=== PATIENT | male | born 1960 | race Caucasian/White ===

== ENCOUNTER → 2024-07-14 07:46 | Outpatient (REF) | payer BC, SELFPAY ==
[2024-07-14 09:16] LABS: % Basophils 0.8 % (0-2); % Eosinophils 1.7 % (0-6); % Immature Granulocytes 0.4 % (0-0.5); % Lymphocytes 21.4 % (20.5-51.1); % Monocytes 8.6 % (1.7-9.3); % Neutrophils 67.1 % (42.2-75.2); Absolute Eosinophils 0.1 10^3/uL (0-0.7); Absolute Lymphocytes 1.1 10^3/uL (1.2-3.4); Absolute Monocytes 0.5 10^3/uL (0.1-0.6); Absolute Neutrophils 3.5 10^3/uL (1.4-6.5); Hematocrit 44.8 % (39.0-52.0); Hemoglobin 14.4 g/dL (13.0-18.0); Mean Corp Hgb Conc. 32.1 g/dL (33.0-37.0); Mean Corpuscular Hgb 27.8 pg (27.0-31.0); Mean Corpuscular Volume 86.5 fL (80.0-94.0); Mean Platelet Volume 10.1 fL (7.4-10.4); Nucleated Red Blood Cells % 0 % (-); Platelet Count 225 10^3/uL (130-400); Red Blood Cell Count 5.18 10^6/uL (4.70-6.10); Red Cell Dist. Width 13.2 % (11.5-14.5); White Blood Cell Count 5.2 10^3/uL (4.8-10.8)
[2024-07-14 09:53] LABS: ALT (SGPT) 65 U/L (0-50); AST (SGOT) 45 U/L (17-59); Albumin 4.5 g/dl (3.5-5.0); Alkaline Phosphatase 55 U/L (38-126); Blood Urea Nitrogen 15 mg/dl (9-20); Calcium 9.7 mg/dl (8.4-10.2); Carbon Dioxide 30 mmol/L (22-30); Chloride 103 mmol/L (98-107); Glucose 107 mg/dl (70-99); HDL Cholesterol 39 mg/dl; LDL Cholesterol, Calculated 72 mg/dl; Potassium 4.8 mmol/L (3.5-5.1); Sodium 143 mmol/L (135-145); Total Bilirubin 0.7 mg/dl (0.2-1.3); Total Cholesterol 134 mg/dl (50-199); Total Protein 6.8 g/dl (6.3-8.2); Triglyceride 117 mg/dl (10-149); Very Low Density Lipoprotein 23 mg/dl (0-30); eGFR > 60.00
[2024-07-14 10:17] LABS: PSA, Total - Screen 2.06 ng/ml (0.0-4.0); TSH Reflex To Free T4 2.56 uIU/ml (0.47-4.68)
[2024-07-14 12:58] LABS: Glycohemoglobin (HgbA1c) 5.7 % (4.0-5.6)
== END ==
LOC: REG 07:46
PROVIDERS: ATTENDING PHYSICIAN Internal Medicine
DX: R73.03 Prediabetes (principal); E78.5 Hyperlipidemia, unspecified; I10 Essential (primary) hypertension; E66.9 Obesity, unspecified; L70.8 Other acne; Z12.5 Encounter for screening for malignant neoplasm of prostate
CPT/HCPCS: 36415; 80053; 80061; 83036; 84443; 85025; G0103

== ENCOUNTER 2024-07-18 01:47 | Day surgery (SDC) | payer BC, SELFPAY ==
[2024-07-17 22:45] VITALS: BMI 37.1
[2024-07-17 22:51] VITALS: BP 176/98
[2024-07-17 23:05] LABS: % Basophils 0.1 % (0-2); % Immature Granulocytes 0.3 % (0-0.5); % Lymphocytes 5.2 % (20.5-51.1); % Monocytes 3.3 % (1.7-9.3); % Neutrophils 91.1 % (42.2-75.2); Absolute Immature Granulocytes 0.1 10^3/uL (0-0.05); Absolute Lymphocytes 0.8 10^3/uL (1.2-3.4); Absolute Monocytes 0.5 10^3/uL (0.1-0.6); Absolute Neutrophils 13.4 10^3/uL (1.4-6.5); Hematocrit 40.9 % (39.0-52.0); Mean Corp Hgb Conc. 34.2 g/dL (33.0-37.0); Mean Corpuscular Hgb 28.5 pg (27.0-31.0); Mean Corpuscular Volume 83.1 fL (80.0-94.0); Mean Platelet Volume 9.7 fL (7.4-10.4); Nucleated Red Blood Cells % 0 % (-); Platelet Count 197 10^3/uL (130-400); Red Blood Cell Count 4.92 10^6/uL (4.70-6.10); Red Cell Dist. Width 13.2 % (11.5-14.5); White Blood Cell Count 14.7 10^3/uL (4.8-10.8)
[2024-07-17 23:31] VITALS: BP 155/78
[2024-07-17 23:31] LABS: ALT (SGPT) 39 U/L (0-50); AST (SGOT) 37 U/L (17-59); Albumin 4.8 g/dl (3.5-5.0); Alkaline Phosphatase 54 U/L (38-126); Blood Urea Nitrogen 13 mg/dl (9-20); Calcium 9.8 mg/dl (8.4-10.2); Carbon Dioxide 24 mmol/L (22-30); Chloride 96 mmol/L (98-107); Glucose 190 mg/dl (70-99); Lipase 62 U/L (23-300); Potassium 4.9 mmol/L (3.5-5.1); Sodium 134 mmol/L (135-145); Total Bilirubin 0.5 mg/dl (0.2-1.3); Total Protein 7.2 g/dl (6.3-8.2); eGFR > 60.00
[2024-07-17 23:39] LABS: Troponin I < 0.012 ng/ml
--- NOTE | 2024-07-17 23:46 | ED.GENMED ---
History of Present Illness
<Gordy Arnold PA-C - Last Filed: 07/18/24 01:11>
General
Chief Complaint: Chest Pain
Source: patient
Exam Limitations: none
Time Seen by Provider: 07/17/24 23:31
History of Present Illness
History of Present Illness:
64-year-old male with history hypertension hyperlipidemia presents complaining of the onset of chest pressure at 1 PM this afternoon has been fairly constant. Pain does not radiate to the back or neck. There is no associated nausea but notes a
decreased appetite. Pain is not associated with eating. Pain is not pleuritic. He does not use NSAIDs alcohol or caffeine regularly.
Phy Exam
<Gordy Arnold PA-C - Last Filed: 07/18/24 01:11>
Physical Exam
Physical Exam:
General: Well-appearing male no acute respiratory distress
HEENT: Normocephalic atraumatic
Heart: Regular rate and rhythm no murmurs
Lungs: Clear no wheeze
Abdomen is soft but tender to the epigastric and slightly to the right upper quadrant no guarding or rebound normal bowel sounds no pulsatile mass
Extremities: No cyanosis
Skin: Warm no rash
Scores
<Gordy Arnold PA-C - Last Filed: 07/18/24 01:11>
Heart Score for Chest Pain Patients
STEMI patient?: No
History: Slightly or Non-Suspicious
ECG: Normal
Age: >45 - <65 years
Risk Factors: 1 or 2 Risk Factors
Troponin: </= Normal Limit
Heart Score for Chest Pain Patients: 2
Heart Score Risk: 2.5% MACE over next 6 weeks
Sarahlt;Clyde Bruno DO - Last Filed: 07/18/24 01:16>
Heart Score for Chest Pain Patients
Heart Score for Chest Pain Patients: 2
Heart Score Risk: 2.5% MACE over next 6 weeks
Course
<Gordy Arnold PA-C - Last Filed: 07/18/24 01:11>
Orders/Labs/Results
Orders:
Orders
07/17/24 22:46
Electrocardiogram (*1) Urgent
Reason for Study: Chest Pain
EKG- Treatment ONCE
07/17/24 22:58
Complete Blood Count/With Diff Urgent
Comprehensive Metabolic Panel Urgent
Lipase Urgent
Troponin I Urgent
07/17/24 23:47
CR Chest - 2 Views Urgent
Comment:
Reason For Exam: chest pain
07/17/24 23:49
Ketorolac [Toradol] 15 mg IV NOW STA
07/18/24 00:00
CT Abd/pelvis W Iv Cont Urgent
Reason For Exam: abdominal pain
07/18/24 01:05
Piperacillin/Tazo 3.375 Gram [Zosyn] 3.375 gram in 50 ml IV NOW
Abnormal Lab Results
07/17/24
22:58
WBC 14.7 H 10^3/uL
(4.8-10.8)
Abs Immat Gran (auto) 0.1 H 10^3/uL
(0-0.05)
Absolute Neuts (auto) 13.4 H 10^3/uL
(1.4-6.5)
Absolute Lymphs (auto) 0.8 L 10^3/uL
(1.2-3.4)
Neutrophils % 91.1 H %
(42.2-75.2)
Lymphocytes % 5.2 L %
(20.5-51.1)
Sodium 134 L mmol/L
(135-145)
Chloride 96 L mmol/L
(98-107)
Glucose 190 H mg/dl
(70-99)
07/17/24 22:58
07/17/24 22:58
Vital Signs
Initial and Last Documented VS:
Initial Vital Signs
Temp Pulse Resp BP Pulse Ox
98.2 F 105 18 176/98 95
07/17/24 22:51 07/17/24 22:51 07/17/24 22:51 07/17/24 22:51 07/17/24 22:51
Last Documented Vital Signs
Temp Pulse Resp BP Pulse Ox
98.2 F 79 22 155/78 96
07/17/24 22:51 07/17/24 23:31 07/17/24 23:31 07/17/24 23:31 07/17/24 23:31
<Clyde Bruno, DO - Last Filed: 07/18/24 01:16>
Orders/Labs/Results
Orders:
Orders
07/17/24 22:46
Electrocardiogram (*1) Urgent
Reason for Study: Chest Pain
EKG- Treatment ONCE
07/17/24 22:58
Complete Blood Count/With Diff Urgent
Comprehensive Metabolic Panel Urgent
Lipase Urgent
Troponin I Urgent
07/17/24 23:47
CR Chest - 2 Views Urgent
Comment:
Reason For Exam: chest pain
07/17/24 23:49
Ketorolac [Toradol] 15 mg IV NOW STA
07/18/24 00:00
CT Abd/pelvis W Iv Cont Urgent
Reason For Exam: abdominal pain
07/18/24 01:05
Piperacillin/Tazo 3.375 Gram [Zosyn] 3.375 gram in 50 ml IV NOW
Abnormal Lab Results
07/17/24
22:58
WBC 14.7 H 10^3/uL
(4.8-10.8)
Abs Immat Gran (auto) 0.1 H 10^3/uL
(0-0.05)
Absolute Neuts (auto) 13.4 H 10^3/uL
(1.4-6.5)
Absolute Lymphs (auto) 0.8 L 10^3/uL
(1.2-3.4)
Neutrophils % 91.1 H %
(42.2-75.2)
Lymphocytes % 5.2 L %
(20.5-51.1)
Sodium 134 L mmol/L
(135-145)
Chloride 96 L mmol/L
(98-107)
Glucose 190 H mg/dl
(70-99)
07/17/24 22:58
07/17/24 22:58
Vital Signs
Initial and Last Documented VS:
Initial Vital Signs
Temp Pulse Resp BP Pulse Ox
98.2 F 105 18 176/98 95
07/17/24 22:51 07/17/24 22:51 07/17/24 22:51 07/17/24 22:51 07/17/24 22:51
Last Documented Vital Signs
Temp Pulse Resp BP Pulse Ox
98.2 F 79 22 155/78 96
07/17/24 22:51 07/17/24 23:31 07/17/24 23:31 07/17/24 23:31 07/17/24 23:31
<Gordy Arnold PA-C - Last Filed: 07/18/24 01:11>
MDM/Problems Addressed
Differential Diagnosis Includes:
Chest/abdominal pain.
Consider ACS but atypical with constant nature of discomfort versus gastritis versus ulcer versus biliary colic versus AAA
EKG shows sinus rhythm with a rate of 98 no ischemic changes
Will check labs including lipase troponin. X-ray of chest and CT of abdomen ordered
<Gordy Arnold PA-C - Last Filed: 07/18/24 01:11>
*Critical Care Note
Total Time (30-74mins, 75-104mins- exclusive of procedures): Not Applicable
<Gordy Arnold PA-C - Last Filed: 07/18/24 01:11>
Update Note
Update Note:
CT was ordered and reviewed and demonstrates distended gallbladder with thickened wall and large gallstone and sludge. This is suspicious for acute cholecystitis. White blood cell count is 14.7 liver functions are normal. Pain improved with
Toradol. Discussed with emergency room attending. General surgery notified. Will admit to general surgery service Zosyn ordered
ED Attending Note
<Gordy Arnold PA-C - Last Filed: 07/18/24 01:11>
-
Portions of this chart may have been created with voice recognition software.� Occasional wrong word or��sound alike� substitutions may have occurred due to the inherent limitations of voice recognition software.
<Clyde Bruno DO - Last Filed: 07/18/24 01:16>
ED Attending Note
Patient seen and examined by attending physician: Yes
I performed the substantive portion of visit, reviewed & personally made and approve the management plan that is documented in note by myself or JAMES.: Yes
ED Attending Note:
64-year-old male presents with right upper quadrant abdominal pain. Moderate right upper quadrant tenderness on exam. Assessment and plan: Check CT, EKG, labs and reassess
Discharge Plan
Departure
Patient Disposition: Admit
Date of Disposition: 07/18/24
Time of Disposition: 01:10
Admit to: Med/Surg
Presentation/result/management discussed w/ accepting /: Koffi
Discharge Problem:
Acute cholecystitis
Referrals:
Susanna Marte DO [Family Provider] -
Interventions
Interventions:
*Risk Screen - Suicide Last Done: 07/17/24 22:51
*General Assessment Last Done: 07/17/24 22:51
*Neglect/Abuse Screening Last Done: 07/17/24 22:51
ED- Fall Risk Assessment Last Done: 07/17/24 23:39
ED- Cardiac Assessment Last Done: 07/17/24 23:39
Discharge Date and Time
Print Language: GEORGIAN
[2024-07-17] MEDS: TORADOL 15 MG IV (23:54)
[2024-07-18] VITALS (11 sets, daily range): BP systolic 103–155; BP diastolic 59–95; BMI 36.1
[2024-07-18] MEDS: ZOSYN 50 IV ×4 (01:14→17:07)
[2024-07-18] MEDS: MORPHINE SULFATE 2 MG IV (01:41)
--- NOTE | 2024-07-18 01:55 | HPS.HSE ---
Addendum entered and electronically signed by Pratik Everett MD 07/18/24 09:05:
Patient seen and examined.
Patient is a 64 yo M with a PMH of HTN and HLD who presents with 24 hours of epigastric and RUQ abdominal pain. Mr. Dejesus states that his pain began yesterday at approximately 11 AM. He reports a severe intense pain and pressure in his
epigastrium and upper abdomen. Radiation to the RIGHT side of his abdomen. Symptoms persisted throughout the course of the day prompting presentation to the ED. No nausea or vomiting. He denies any jaundice, pale stools, or tea colored urine.
He does report intermittent episodes of RIGHT sided abdominal discomfort over the past several years. No clear association with oral intake, the patient has been not keeping a clear record of this. Currently he states that his pain is improved and
almost resolved.
Gen: NAD
Abd: soft, minimal RUQ tenderness with deep palpation, ND, non-peritoneal
Labs and CT scan imaging were reviewed.
Patient is a 64 yo M p/w biliary colic vs. choledocholithiasis.
The natural history and pathophysiology of biliary and stone disease was discussed. Anatomy was reviewed utilizing pictorial images. Workup thus far including CT scan imaging and labs was reviewed. Options for management including medical
management with a low-fat diet, trending labs, and outpatient management versus proceeding with surgical management during this admission were considered and discussed. The pros and cons of both approaches was discussed. Patient would like to
proceed with cholecystectomy.
Plan for a laparoscopic cholecystectomy with possible cholangiogram. The procedure itself, as well as the risks, benefits, and alternatives was discussed. Specifically, we discussed the risks of bleeding, infection, injury to surrounding
structures (bowel, bile ducts), CBD injury, need for open procedure. Typical post procedure recovery was discussed. All questions answered. Consent signed.
Given his history of hypertension as well as presenting symptoms of epigastric and chest discomfort plan for a preoperative EKG to rule out cardiac pathology. Patient denies any shortness of breath during the time of his episode. Currently he is
having no symptoms.
-- Laparoscopic cholecystectomy with cholangiogram
-- NPO, IVF
-- Antibiotics: Zosyn
-- Pain control: Tylenol and IV Morphine as needed
Original Note:
Family Physician
-
Family Physician: Susanna Marte DO
Chief Complaint
-
abd pain/chest pain
History of Present Illness
64-year-old male with history hypertension, hyperlipidemia presents complaining of the onset of chest pressure at 1 PM this afternoon has been fairly constant. 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
some upper abd/epigastric pain. Consitant most of day. Hard to get comfortable at times but was able to manage to work rest of day. Pt went home but pain worsened and being that it was chest pain he decided to get checked put in ED. Pain does not
radiate to the back or neck. There is no associated nausea but notes a decreased appetite. Pain is not associated with eating. Pain is not pleuritic. He does not use NSAIDs alcohol or caffeine regularly. Had covid 3 weeks ago. Does not recall
ever having pain like this.
CT abd: mild to moderately distended gallbladder containing large gallstone.Also probable smaller gallstones and sludge. . may be releated to mild or early acute cholecystisis.
Toradol helped pain considerably. Pt trying to avoid narcotics.
WBC 14
Medical History
Past Medical History
Past Medical History: Reports HTN and Hypercholesterolemia
Past Surgical History: Reports None
Social History
Tobacco: Non-smoker
Alcohol: Occasional (rare)
Drug: None
Personal:
Living: With Family
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
Family History
Family History: Not pertinent
Allergies / Home Medications
Allergies reflects when Allergies were last updated in [email or web address].
Home Medications with original date entered in [email or web address]
Allergy/Medication List:
Allergies
Allergy/AdvReac Type Severity Reaction Status Date / Time
No Known Allergies Allergy Unverified 07/17/24 22:51
Home Medications
Aspir-81 81 mg DAILY 07/18/24
amlodipine 5 mg-benazepril 10 mg capsule 1 cap PO DAILY 07/18/24
atorvastatin 40 mg tablet 40 mg PO HS 07/18/24
metoprolol tartrate 25 mg tablet 25 mg 07/18/24
Review of Systems
-
History Source: Patient
A 12 point ROS was completed and negative except as noted: Yes
Constitutional: Reports No Symptoms
EENT: Reports No Symptoms
Respiratory: Reports No Symptoms
Cardiac: Reports Chest Pain
Abdomen/GI: Reports Abdominal Pain (RUQ/ epigastric) and Pain
: Reports No Symptoms
Musculoskeletal: Reports No Symptoms
Skin: Reports No Symptoms
Neurological: Reports No Symptoms
Endocrine: Reports No Symptoms
Hematologic/Lymphatic: Reports No Symptoms
Psych: Reports No Symptoms
Physical Exam
Vital Signs
Vital Signs
Temp Pulse Resp BP Pulse Ox
98.2 F 79 22 155/78 96
07/17/24 22:51 07/17/24 23:31 07/17/24 23:31 07/17/24 23:31 07/17/24 23:31
Physical Exam
General: Well Developed, Well Nourished, No Apparent Distress and Comfortable
HEENT: Moist mucous membranes and Atraumatic
Respiratory: Clear
Cardiac: S1/S2 and Regular Rhythm
Breast: Deferred by me
GI: Soft, Normal Bowel Sounds and Tender (RUQ/epigastric)
Rectal: Other
Genito-urinary: Deferred by me
Musculoskeletal: No Clubbing and No Cyanosis
Skin: Warm and Dry
Neuro: Awake, Alert, Oriented, AO x 3 and No Motor Deficits
Psych: Calm and Intact Judgment/Insight
Laboratory Results
-
07/17/24 22:58
07/17/24 22:58
Laboratory Results
Total Bilirubin 0.5 mg/dl (0.2-1.3) 07/17/24 22:58
AST 37 U/L (17-59) 07/17/24 22:58
ALT 39 U/L (0-50) 07/17/24 22:58
Alkaline Phosphatase 54 U/L (38-126) 07/17/24 22:58
Troponin I < 0.012 ng/ml 07/17/24 22:58
Lipase 62 U/L (23-300) 07/17/24 22:58
Data Reviewed
-
CT Scan: Report Reviewed by me and Discussed with Physician
Impression/Plan
-
IMPRESSION:
acute cholecystitis
PLAN:
Admit to service to Dr Everett
med surg obs
Acute Cholecystitis:
-NPO x meds
-IVF: Normosol @80
-pain control: Pt good relief with toradol, wants to avoid narc if possible, but will add morphine iv prn just in case pain returns and not time for toradol
-cont zosyn
-WBC 14 --recheck in am
HTN:
-cont amlodipine-benazapril, metoprolol
HLD:
-cont atorvastatin
Takes asa prophylactically- ok to hold for now
DVT proph: scd
Full code
[2024-07-18] MEDS: TORADOL 15 MG IV (02:06)
--- NOTE | 2024-07-18 03:07 | PTCARENOTE ---
Pt arrived to 2S from ED, walked into room without assist. Pt AAOx3, very pleasant, no c/o pain at this time. Oriented to room and IVF started per order. Plan for OR later this morning, pt aware of plan and all questions/concerns addressed.
[2024-07-18] MEDS: NORMOSOL-R/PLASMALYTE-A 1000 IV (03:30)
[2024-07-18 06:39] LABS: % Basophils 0.3 % (0-2); % Eosinophils 0.1 % (0-6); % Immature Granulocytes 0.3 % (0-0.5); % Lymphocytes 12.3 % (20.5-51.1); Absolute Lymphocytes 1.3 10^3/uL (1.2-3.4); Absolute Monocytes 1.1 10^3/uL (0.1-0.6); Absolute Neutrophils 8.2 10^3/uL (1.4-6.5); Hematocrit 41.7 % (39.0-52.0); Hemoglobin 13.9 g/dL (13.0-18.0); Mean Corp Hgb Conc. 33.3 g/dL (33.0-37.0); Mean Corpuscular Hgb 28.1 pg (27.0-31.0); Mean Corpuscular Volume 84.2 fL (80.0-94.0); Mean Platelet Volume 9.4 fL (7.4-10.4); Nucleated Red Blood Cells % 0 % (-); Platelet Count 164 10^3/uL (130-400); Red Blood Cell Count 4.95 10^6/uL (4.70-6.10); Red Cell Dist. Width 13.3 % (11.5-14.5); White Blood Cell Count 10.7 10^3/uL (4.8-10.8)
[2024-07-18 07:04] LABS: ALT (SGPT) 154 U/L (0-50); AST (SGOT) 185 U/L (17-59); Albumin 4.2 g/dl (3.5-5.0); Alkaline Phosphatase 64 U/L (38-126); Blood Urea Nitrogen 13 mg/dl (9-20); Calcium 9.5 mg/dl (8.4-10.2); Carbon Dioxide 29 mmol/L (22-30); Chloride 101 mmol/L (98-107); Estimated Creatinine Clearance 84 ml/min; Glucose 114 mg/dl (70-99); Potassium 4.8 mmol/L (3.5-5.1); Sodium 140 mmol/L (135-145); Total Protein 6.6 g/dl (6.3-8.2); eGFR > 60.00
[2024-07-18] MEDS: LOTREL 5 MG/10 MG 1 CAPSULE PO (08:29)
[2024-07-18] MEDS: LOPRESSOR 25 MG PO (08:29)
--- NOTE | 2024-07-18 09:05 | W.SUR.PREOP ---
Pre-Operative Surgical Note
-
I have examined this patient prior to the performance of the scheduled procedure.
The patient's condition is unchanged from the time of the current History and
Physical and the patient is able to undergo the scheduled procedure.
--- NOTE | 2024-07-18 09:06 | CM ---
Addendum entered by Malka Cruz 07/18/24 14:08:
Post op bedside visit
No dc needs noted
OBS form verbally reviewed
Pt declined copy
Discharge Disposition- home, no needs- spouse transport
Original Note:
CM attempted bedside visit with pt- off unit in OR
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
No needs anticipated on dc- CM will continue to follow for dc planning
Discharge Disposition- home, no needs anticipated
--- NOTE | 2024-07-18 11:13 | W.IMMPOSTOP ---
Addendum entered and electronically signed by Pratik Rain MD 07/18/24 16:39:
[facility]#[id number]
Original Note:
Surgical Immed Post Op Note
-
Primary Surgeon: Koffi
Assisting Surgeon: None
Pre-op Diagnosis: Acute cholecystitis
Post-op Diagnosis: Acute cholecystitis
Procedure Performed: Laparoscopic cholecystectomy with IOC
Anesthesia Type: General
Specimen / Cultures:
1. Gallbladder
Estimated Blood Loss: 23 cc
Complications: None
Operative Findings:
1. Acutely inflamed and edematous GB, large stone
2. Critical view
3. IOC negative
4. Artery clips, duct clips and Endoloop
--- NOTE | 2024-07-18 12:34 | PTCARENOTE ---
Pt returned to 2S in bed. Abdominal lap sites C/D/I, glued and HEDIS NURSE. IVF infusing per order. Pt educated on low fat diet, verbalized understanding. Pt instructed to ring for assistance getting OOB, verbalized understanding. Bed locked and in the
lowest position, safety maintained. Oriented to room and call vera.
--- NOTE | 2024-07-18 16:12 | W.DS.TRANS ---
DC Summary - Project Asst
-
Discharge Instructions:
Discharge Diagnosis/Procedures Acute cholecystitis status post laparoscopic
cholecystectomy
Diet Low Fat,Regular
Additional Diets If you notice loose stools after surgery switch
to a low fat diet
Activity No strenuous activity
Additional Activity Do not lift over 15lbs for the next 2 weeks
Driving Restrictions No driving for 24 hours
Bathing Restrictions OK to Shower
Wound Care Allow the glue over your incisions to flake off
on its own over the next 2-3 weeks. Avoid
picking or scrubbing the glue off
Instructions:
Stand-Alone Forms:
Changes to Home Medications: No
Discharge Medications:
DC Medications w/original date entered in [employer]
Aspir-81 81 mg DAILY Blood Clot Prevention/Tx 07/18/24
acetaminophen 325 mg tablet 650 mg (2 x 325 mg) PO Q4HPRN PRN mild pain #1 tab 07/18/24
amlodipine 5 mg-benazepril 10 mg capsule 1 cap PO DAILY Blood Pressure 07/18/24
atorvastatin 40 mg tablet 40 mg PO HS High Cholesterol 07/18/24
ibuprofen 200 mg tablet 400 - 600 mg (2 - 3 x 200 mg) PO Q6HPRN PRN moderate pain #1 tab 07/18/24
metoprolol tartrate 25 mg tablet 25 mg Blood Pressure 07/18/24
Home Medication Changes
Pending Results: No
[2024-07-18] MEDS: LOVENOX 40 MG SC (17:08)
== END 2024-07-18 17:53 | disposition home or self-care (01) ==
LOC: SDS 01:47
PROVIDERS: Nurse Practitioner Family; ATTENDING PHYSICIAN Surgery; EMERGENCY PHYSICIAN Emergency Medicine; FAMILY PHYSICIAN Internal Medicine
DX: K80.10 Calculus of gallbladder with chronic cholecystitis without obstruction (principal)
CPT/HCPCS: 47563; 88304; 71046; 74177; 74300; 76000; 80053; 83690; 84484; 85025; 93005; 96365; 96375; 99285; A4300; G0378; Q9967

== ENCOUNTER → 2024-07-30 11:14 | Outpatient (REF) | payer BC, SELFPAY ==
[2024-07-30 12:35] LABS: % Basophils 0.8 % (0-2); % Eosinophils 0.8 % (0-6); % Immature Granulocytes 0.3 % (0-0.5); % Lymphocytes 15.8 % (20.5-51.1); % Monocytes 6.3 % (1.7-9.3); Absolute Basophils 0.1 10^3/uL (0-0.2); Absolute Eosinophils 0.1 10^3/uL (0-0.7); Absolute Lymphocytes 1.1 10^3/uL (1.2-3.4); Absolute Monocytes 0.5 10^3/uL (0.1-0.6); Absolute Neutrophils 5.4 10^3/uL (1.4-6.5); Hematocrit 43.7 % (39.0-52.0); Hemoglobin 14.8 g/dL (13.0-18.0); Mean Corp Hgb Conc. 33.9 g/dL (33.0-37.0); Mean Corpuscular Hgb 29.8 pg (27.0-31.0); Mean Corpuscular Volume 88.1 fL (80.0-94.0); Mean Platelet Volume 9.9 fL (7.4-10.4); Nucleated Red Blood Cells % 0 % (-); Platelet Count 214 10^3/uL (130-400); Red Blood Cell Count 4.96 10^6/uL (4.70-6.10); Red Cell Dist. Width 13.4 % (11.5-14.5); White Blood Cell Count 7.2 10^3/uL (4.8-10.8)
[2024-07-30 13:02] LABS: ALT (SGPT) 35 U/L (0-50); AST (SGOT) 37 U/L (17-59); Albumin 4.4 g/dl (3.5-5.0); Alkaline Phosphatase 67 U/L (38-126); Blood Urea Nitrogen 22 mg/dl (9-20); Calcium 9.5 mg/dl (8.4-10.2); Carbon Dioxide 27 mmol/L (22-30); Chloride 107 mmol/L (98-107); Glucose 118 mg/dl (70-99); Potassium 4.7 mmol/L (3.5-5.1); Sodium 145 mmol/L (135-145); Total Bilirubin 0.4 mg/dl (0.2-1.3); Total Protein 6.8 g/dl (6.3-8.2); eGFR > 60.00
== END ==
LOC: REG 11:14
PROVIDERS: ATTENDING PHYSICIAN Surgery
DX: Z90.49 Acquired absence of other specified parts of digestive tract (principal); R53.81 Other malaise; R53.83 Other fatigue
CPT/HCPCS: 36415; 80053; 85025

== ENCOUNTER → 2024-09-24 08:42 | Outpatient (REF) | payer BC, SELFPAY | LOC: RAD 08:42 | PROVIDERS: ATTENDING PHYSICIAN Student in an Organized Health Care Education/Training Program | DX: M25.572 Pain in left ankle and joints of left foot (principal) | CPT/HCPCS: 73610 ==

== ENCOUNTER 2024-12-14 21:19 | Emergency (ER) | payer BC, SELFPAY ==
[2024-12-14 21:21] VITALS: BP 140/92
[2024-12-14 22:21] VITALS: BP 151/91
--- NOTE | 2024-12-14 22:42 | ED.GENMED ---
History of Present Illness
General
Chief Complaint: Cold/Flu/URI Symptoms
Source: patient
Exam Limitations: none
Time Seen by Provider: 12/14/24 22:28
Nursing documentation reviewed up to this point in time: agreed with
History of Present Illness
History of Present Illness:
63-year-old male immunized for COVID and flu 2 days fever cough chills nausea negative home COVID test no abdominal pain no dysuria frequency
Past History
Past History
ED Past Surgical History: Cholecystectomy
Social History
Tobacco: Non-smoker
Alcohol: None
Drug: None
Personal:
Living: with family
Employment: Employed
Review of Systems
Review of Systems
All Other Systems: Not applicable
Constitutional: Reports fever, fatigue and chills
Respiratory: Reports cough and trouble breathing
Cardiac: Reports no symptoms
ABD/GI: Reports nausea; Denies abdominal pain
Phy Exam
Physical Exam
Physical Exam:
Physical Exam
General: no apparent distress, not acutely ill
Neck: No jaundice dry lips
Heart: Tachycardic
Lungs: Crackles bilateral
Abdomen: normal bowel sounds. not tender. no CVAT
Neuro: alert and oriented. no focal neurological deficits
Skin: no rash
Psychiatric: well kept. interactive and cooperative
Extremities: no edema.
Sepsis
Sepsis Screening
Sepsis Assessment: Sepsis Ruled Out
Sepsis Screen
Sepsis Screen: Sepsis Ruled Out
Date: 12/15/24
Time: 00:25
Course
Orders/Labs/Results
Orders:
Orders
12/14/24 22:18
Influenza A+B Rapid Molecular Urgent
TAMAR Source: [facility]
Specimen Description:
12/14/24 22:24
CR Chest - 2 Views Urgent
Comment:
Reason For Exam: Fever
12/14/24 22:38
0.9% Sodium Chloride 1000 ml [Nss] 1,000 ml IV BOLUS
Acetaminophen [Tylenol] 1,000 mg PO NOW STA
Ipratropium/Albuterol Sulfate [Duoneb] 3 ml INH R NOW STA
Ketorolac [Toradol] 30 mg IV NOW STA
12/14/24 22:58
COVID-19 Antigen Urgent
Source: Nasal Swab
Complete Blood Count/With Diff Urgent
Prothrombin Time Urgent
12/15/24 00:22
Oseltamivir Phosphate [Tamiflu] 75 mg PO NOW STA
Abnormal Lab Results
12/14/24
22:58
Absolute Neuts (auto) 7.6 H 10^3/uL
(1.4-6.5)
Absolute Lymphs (auto) 0.6 L 10^3/uL
(1.2-3.4)
Absolute Monos (auto) 0.7 H 10^3/uL
(0.1-0.6)
Neutrophils % 85.2 H %
(42.2-75.2)
Lymphocytes % 6.3 L %
(20.5-51.1)
12/14/24 22:58
Vital Signs
Initial and Last Documented VS:
Initial Vital Signs
Temp Pulse Resp BP Pulse Ox
100.9 F H 138 24 140/92 94
12/14/24 21:21 12/14/24 21:21 12/14/24 21:21 12/14/24 21:21 12/14/24 21:21
Last Documented Vital Signs
Temp Pulse Resp BP Pulse Ox
98.7 F 118 26 143/83 93
12/15/24 00:00 12/14/24 23:45 12/14/24 23:45 12/14/24 23:00 12/14/24 23:45
MDM/Problems Addressed
Differential Diagnosis Includes:
Influenza viral syndrome pneumonia bronchitis
MDM/Problems Addressed:
Cough fever shortness of breath
Chronic conditions affecting care: Previous abdomnial surgery
Acute Exacerbation and/or Progression of Chronic Illness: Previous abdomnial surgery
*Radiology
Radiology exam reviewed: preliminary read by ED provider
*Pulse Oximetry
Patient hypoxic: no
*Critical Care Note
Total Time (30-74mins, 75-104mins- exclusive of procedures): Not Applicable
Update Note
Update Note:
Looks like he has influenza. Supportive care check chest x-ray to rule out concomitant pneumonia
Chest x-ray noted, patient feeling better after fluids antipyretics and a neb
ED Attending Note
-
Portions of this chart may have been created with voice recognition software.� Occasional wrong word or��sound alike� substitutions may have occurred due to the inherent limitations of voice recognition software.
Discharge Plan
Departure
Patient Disposition: Home (Routine Discharge)
Date of Disposition: 12/15/24
Time of Disposition: 00:23
Patient with high blood pressure during this ER visit?: No
Condition: Good
Covid-19: Not Applicable
Discharge Problem:
Influenza
Instructions: Flu, Flu in adults - Discharge instructions
Prescriptions:
New
ibuprofen 600 mg tablet
600 mg PO Q6H PRN (Reason: Pain) Qty: 20 0RF
oseltamivir [Tamiflu] 75 mg capsule
75 mg PO BID Qty: 10 0RF
albuterol sulfate 90 mcg/actuation HFA aerosol inhaler
2 inh inhalation Q4H PRN (Reason: shortness of breath or wheezing) Qty: 8.5 0RF
No Action
Aspir-81
81 mg DAILY
atorvastatin 40 mg Tablet
40 mg PO HS
amlodipine-benazepril 5-10 mg Capsule
1 cap PO DAILY
metoprolol tartrate 25 mg Tablet
25 mg
acetaminophen [acetaminophen] 325 mg tablet
650 mg PO Q4HPRN PRN (Reason: mild pain) Qty: 1 0RF
ibuprofen 200 mg tablet
400 - 600 mg PO Q6HPRN PRN (Reason: moderate pain) Qty: 1 0RF
Referrals:
José Mclaughlin MD, Resident [Family Provider] -
Stand Alone Forms: Return to Work
Interventions
Interventions:
*Risk Screen - Suicide Last Done: 12/14/24 21:21
*General Assessment Last Done: 12/15/24 00:01
*Neglect/Abuse Screening Last Done: 12/14/24 21:21
ED- Fall Risk Assessment Last Done: 12/15/24 00:01
*ED COVID-19 Vaccine History Last Done: 12/15/24 00:01
ED- Pulmonary Assessment Last Done: 12/15/24 00:01
Discharge Date and Time
Print Language: IRISH
[2024-12-14] MEDS: TYLENOL 1000 MG PO (22:47)
[2024-12-14] MEDS: NSS 1000 IV (22:56)
[2024-12-14] MEDS: TORADOL 30 MG IV (22:56)
[2024-12-14] MEDS: DUONEB 3 ML INH (22:57)
[2024-12-14 23:00] VITALS: BP 143/83
[2024-12-14 23:07] LABS: % Basophils 0.3 % (0-2); % Immature Granulocytes 0.1 % (0-0.5); % Lymphocytes 6.3 % (20.5-51.1); % Monocytes 8.1 % (1.7-9.3); % Neutrophils 85.2 % (42.2-75.2); Absolute Lymphocytes 0.6 10^3/uL (1.2-3.4); Absolute Monocytes 0.7 10^3/uL (0.1-0.6); Absolute Neutrophils 7.6 10^3/uL (1.4-6.5); Hematocrit 41.2 % (39.0-52.0); Hemoglobin 13.6 g/dL (13.0-18.0); Mean Corpuscular Hgb 28.3 pg (27.0-31.0); Mean Corpuscular Volume 85.8 fL (80.0-94.0); Mean Platelet Volume 9.9 fL (7.4-10.4); Nucleated Red Blood Cells % 0 % (-); Platelet Count 149 10^3/uL (130-400); Red Cell Dist. Width 13.7 % (11.5-14.5); White Blood Cell Count 8.9 10^3/uL (4.8-10.8)
[2024-12-14 23:16] LABS: INR 0.95
[2024-12-14 23:19] LABS: COVID-19 Antigen Negative (Negative)
[2024-12-15] MEDS: TAMIFLU 75 MG PO (00:30)
[2024-12-15 01:09] VITALS: BP 131/79
== END 2024-12-15 01:31 | disposition home or self-care (01) ==
LOC: EMR 21:19
PROVIDERS: EMERGENCY PHYSICIAN Emergency Medicine; FAMILY PHYSICIAN Student in an Organized Health Care Education/Training Program
DX: J10.1 Influenza due to other identified influenza virus with other respiratory manifestations (principal); Z11.52 Encounter for screening for COVID-19
CPT/HCPCS: 99284; 96374; 96361; 94640; 71046; 85025; 85610; 87502; 87811